=== PATIENT | male | born 1955 | race Caucasian/White ===

== ENCOUNTER → 2019-03-03 | Outpatient (CLI) | payer OTHER | LOC: COL.RAD 07:23 | DX: R42 Dizziness and giddiness (principal); R26.89 Other abnormalities of gait and mobility | CPT/HCPCS: A9585 ==

== ENCOUNTER 2019-03-28 09:00 | Outpatient (RCR) | payer OTHER | END 2019-05-27 17:56 | disposition home or self-care (01) | LOC: WSPT 09:00 | DX: R42 Dizziness and giddiness (principal) ==